=== PATIENT | female | born 1985 | race Caucasian/White ===

== ENCOUNTER 2017-01-04 16:56 | Emergency (ER) | payer OTHER ==
[~2017-01-04] VITALS: Ht 165.1 cm; Wt 113.4 kg
[~2017-01-04 16:56] MED LIST: AMOXICILLIN875 M1 PO; AUGMENTIN 875 M1 TAB PO; BACTRIM DS TAB1 EACH PO; CIPRO 500MG TA500 MG PO; KEFLEX500 MG PO; LOMOTIL 0.025 M1 TAB PO; MOTRIN 600 MG600 MG PO; NEXPLANON68 MG; PERCOCET 325 MG1 TA2 PO; PREDNICOT20 MG PO; PREDNISONE20 M1 PO; PREDNISONE50 MG PO; PREMARIN 1.251.25 MG PO; PYRIDIUM100 M1 PO; PYRIDIUM200 MG PO; ROBITUSSIN W/CO10 ML PO; TESSALON PERLE100 MG PO; TRAMADOL50 MG PO; ZITHROMAX250 M2 PO; ZOFRAN ODT4 M1 PO; ZOFRAN ODT4 M1 SL; ZOFRAN ODT4 MG PO
--- NOTE | 2017-01-04 18:46 | ED GENERAL ADULT ---
History of Present Illness General Chief Complaint: General Adult Stated Complaint: PT HAVING ,PAIN NOSE AREA, HEADACHE, Source: patient Exam Limitations: no limitations Vital Signs & Intake/Output Vital Signs & Intake/Output Vital Signs Date Time Temp Pulse Resp B/P B/P Pulse O2 O2 Flow FiO2 Mean Ox Delivery Rate 01/04 1713 97.8 88 20 127/89 98 Room Air Allergies Coded Allergies: No Known Allergies (01/04/17) Reconcile Medications Amoxicillin 875 MG TABLET 1 TAB PO BID sinusitis Amoxicillin 875 MG TABLET 1 TAB PO BID sinusitis Etonogestrel (Nexplanon) 68 MG IMP CONTROL (Reported) Fluticasone Propionate (Flonase Allergy Relief) 50 MCG/ACTUATION SPRAY.SUSP 2 SPRAY INH DAILY SINUSITIS Ondansetron (Zofran Odt) 4 MG TAB.RAPDIS 1 TAB SL TID PRN nausea Prednisone 20 MG TABLET 1 TAB PO BID sinusitis Triage Note: TRIAGE: PT TO ER WITH FRIEND C/C HEADACHE PAIN AND FACIAL PRESSURE SINCE THURSDAY AND "MY THROAT IS ICKY". PAINS ARE CONSTANT AND WORSENING SINCE ONSET. +POST NASAL DRIP. TRIED ALLERGY MEDICINE WITH NO RELIEF NOTED. Triage Nurses Notes Reviewed? yes : No Patient currently breastfeeds: No HPI: Patient is a 31-year-old female presents complaining of sinus pain, swollen lymph nodes and postnasal drip. Symptoms onset on Thursday. Symptoms have been progressively worsening. Cough with yellow sputum production. Patient has been taking allergy medication with no improvement. Symptoms are currently moderate. Mild associated sore throat. Patient denies fevers, difficulty swallowing, difficulty breathing. Past History Travel History Traveled to [place] past 21 day No Medical History Any Pertinent Medical History? 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 No Review of Systems Review of Systems Constitutional: Denies: chills, fever. EENTM: Reports: see HPI. Respiratory: Reports: cough, sputum production. Denies: short of breath, wheezing. Cardiovascular: Denies: chest pain. GI: Denies: abdominal pain. Musculoskeletal: Reports: no symptoms. Skin: Reports: no symptoms. Neurological/Psychological: Reports: headache. Hematologic/Endocrine: Reports: no symptoms. Immunologic/Allergic: Reports: no symptoms. Physical Exam Physical Exam General Appearance: well developed/nourished, alert, awake Head: atraumatic, normal appearance, bilateral maxillary and frontal sinus tenderness Eyes: Bilateral: normal appearance, PERRL, EOMI. Ears, Nose, Throat: normal ENT inspection, hearing grossly normal, mild pharyngeal erythema. No tonsillar exudates. Neck: normal inspection, supple, full range of motion, mild bilateral Respiratory: normal breath sounds, chest non-tender, no respiratory distress, lungs clear Cardiovascular: regular rate/rhythm Back: normal inspection, normal range of motion Extremities: normal capillary refill, normal range of motion Neurologic/Psych: awake, alert, oriented x 3, normal gait, normal mood/affect Skin: intact, normal color, warm/dry Lymphatic: adenopathy (bilateral anterior cervical) Core Measures ACS in differential dx? No CVA/TIA Diagnosis: No Severe Sepsis Present: No Septic Shock Present: No Progress Differential Diagnoses I considered the following diagnoses in my evaluation of the patient: sinusitis, pharyngitis, strep throat, viral uri, pneumonia, bronchitis Plan of Care: Patient nontoxic appearing, tolerating oral intake, no respiratory distress. Appears stable for discharge. Initial ED EKG: none Departure Departure Time of Disposition: 1852 Disposition: HOME OR SELF CARE Condition: Stable Clinical Impression Primary Impression: Sinusitis Qualifiers: Sinusitis location: unspecified location Chronicity: acute Recurrence: non-recurrent Qualified Code: J01.90 - Acute sinusitis, unspecified Referrals: PATIENT HAS NO PRIMARY CARE DR (PCP/Family) Additional Instructions: Drink plenty of fluids and rest. Return to emergency department if difficulty breathing, unable to stay hydrated, or worsening of symptoms. Departure Forms: Customer Survey General Discharge Information Prescriptions: Current Visit Scripts Amoxicillin 1 TAB PO BID #14 TAB Fluticasone Propionate (Flonase Allergy Relief) 2 SPRAY INH DAILY #1 BOT Critical Care Note Critical Care Note Critical Care Time: non-applicable
[2017-01-04] MEDS ORDERED: AMOXICILLIN875 M1 PO (18:54)
[2017-01-04] MEDS ORDERED: FLONASE ALLERG9.9 ML INH (18:55)
[2017-01-04 19:04] VITALS: BP 128/82
== END 2017-01-04 19:04 ==
LOC: ERH 16:56
DX: J32.9 Chronic sinusitis, unspecified (principal)

== ENCOUNTER 2017-02-01 02:44 | Emergency (ER) | payer OTHER ==
[~2017-02-01] VITALS: Ht 165.1 cm; Wt 113.4 kg
[~2017-02-01 02:44] MED LIST changes: +FLONASE ALLERG9.9 ML INH
--- NOTE | 2017-02-01 03:16 | ED GI/GU/ABDOMINAL COMPLAINT ---
History of Present Illness General Chief Complaint: General Adult Stated Complaint: "PER PT N+V+D, DIZZZY, HILL" Source: patient Exam Limitations: no limitations Vital Signs & Intake/Output Vital Signs & Intake/Output Vital Signs Date Time Temp Pulse Resp B/P B/P Pulse O2 O2 Flow FiO2 Mean Ox Delivery Rate 02/01 0311 97.2 89 20 117/83 98 Allergies Coded Allergies: No Known Allergies (01/04/17) Reconcile Medications Amoxicillin 875 MG TABLET 1 TAB PO BID sinusitis Amoxicillin 875 MG TABLET 1 TAB PO BID sinusitis Etonogestrel (Nexplanon) 68 MG IMP CONTROL (Reported) Fluticasone Propionate (Flonase Allergy Relief) 50 MCG/ACTUATION SPRAY.SUSP 2 SPRAY INH DAILY SINUSITIS Ondansetron (Zofran Odt) 4 MG TAB.RAPDIS 1 TAB SL Q6P PRN NAUSEA/VOMITING Ondansetron (Zofran Odt) 4 MG TAB.RAPDIS 1 TAB SL TID PRN nausea Prednisone 20 MG TABLET 1 TAB PO BID sinusitis Triage Note: PER PT WOKE UP APPROX 1 HR AGO, NAUSEA AND VOMITING AND DIARHHEA GOT REALLY WARM AND SWEATY, NOW FEEL "FUZZY" NO FURTHER VOMITING. BUT DOES NOT FEEL WELL Triage Nurses Notes Reviewed? yes ? n Is pt currently ? No HPI: Patient presents for evaluation of a sudden onset of vomiting and diarrhea that began about 1 hour ago while at home. Patient states she's had about 5 episodes of vomiting and at least 2 episodes of diarrhea with associated dizziness and headache. She denies any associated fever, cold symptoms, recent travel, known ill contacts or suspicious meals. She states she is having a little diffuse cramping abdominal pain. Past History Travel History Traveled to [place] past 21 day No Medical History Any Pertinent Medical History? 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 No Review of Systems Review of Systems Constitutional: Reports: no symptoms. EENTM: Reports: no symptoms. Respiratory: Reports: no symptoms. Cardiovascular: Reports: no symptoms. GI: Reports: see HPI. Genitourinary: Reports: no symptoms. Musculoskeletal: Reports: no symptoms. Skin: Reports: no symptoms. Neurological/Psychological: Reports: headache. Hematologic/Endocrine: Reports: no symptoms. Immunologic/Allergic: Reports: no symptoms. All Other Systems: Reviewed and Negative Physical Exam Physical Exam Gastrointestinal: SEE BELOW Comments: Gen.: Well-nourished, well-developed, no acute respiratory distress. Overweight. Head: Normocephalic, atraumatic. Eyes: Normal inspection bilaterally Ears: Normal inspection bilaterally Nose: Normal inspection Throat/mouth : Moist mucosa Neck: Supple, full range of motion, no goiter Heart: Regular rate and rhythm, no murmurs rubs or gallops Lungs: Clear to auscultation bilaterally with normal air entry Chest: Nontender Back: Normal range of motion Abdomen: Soft, tenderness over the left upper quadrant epigastric region right upper quadrant and right lower quadrant., nondistended, normal bowel sounds Extremities: Normal range of motion grossly, equal radial pulses, no cyanosis clubbing or edema Neurologic: Cranial nerves grossly intact, speech is clear Skin: warm and dry Psychiatric: Calm, cooperative, no apparent delusions or hallucinations Core Measures ACS in differential dx? No Severe Sepsis Present: No Septic Shock Present: No Progress Differential Diagnosis: ibd, ibs, FOOD POISONING, VIRAL GASTROENTERITIS Plan of Care: Current Medications Sig/Sterling Start time Last Medication Dose Stop Time Status Admin Ondansetron HCl 4 MG ONCE ONE 02/015 UNVr (Zofran) 02/01 0316 Sodium Chloride 1,000 ML BOLUS ONE 02/015 UNVr (Normal Saline 0.9%) 02/01 0414 Initial ED EKG: none Comments: 02/01/2017 4:57:20 AM Nisreen slept during her emergency department stay. She feels much better at this point. I feel she is stable for outpatient management. Given the vomiting Diarrhea, minimal abdominal pain and response to fluids and Zofran I suspect a gastroenteritis. Departure Departure Disposition: HOME OR SELF CARE Condition: Stable Clinical Impression Primary Impression: Gastroenteritis Referrals: PATIENT HAS NO PRIMARY CARE DR (PCP/Family) Additional Instructions: Zofran as needed for nausea or vomiting. Clear liquid diet and advance as tolerated. Follow-up with your primary care doctor on Thursday for reevaluation. Return if any concerns or sudden worsening. Thank you for choosing the [facility] Emergency Department for your care. It was a pleasure to serve you today. Elver Marshall M.D. [facility] Departure Forms: Customer Survey General Discharge Information Prescriptions: Current Visit Scripts Ondansetron (Zofran Odt) 1 TAB SL Q6P PRN NAUSEA/VOMITING #10 TAB
[2017-02-01] MEDS ORDERED: ZOFRAN ODT4 M1 SL (05:10)
[2017-02-01 05:15] VITALS: BP 126/75
== END 2017-02-01 05:17 ==
LOC: ERH 02:44
DX: K52.9 Noninfective gastroenteritis and colitis, unspecified (principal)
CPT/HCPCS: 96374; J2405

== ENCOUNTER 2017-09-14 10:01 | Emergency (ER) | payer OTHER ==
[~2017-09-14] VITALS: Ht 165.1 cm; Wt 113.4 kg
[~2017-09-14 10:01] MED LIST changes: +LEVSIN0.125 M1 PO
--- NOTE | 2017-09-14 10:23 | ED GI/GU/ABDOMINAL COMPLAINT ---
History of Present Illness General Chief Complaint: General Adult Stated Complaint: ABD PAIN N/V/D Source: patient Exam Limitations: no limitations Vital Signs & Intake/Output Vital Signs & Intake/Output Vital Signs Date Time Temp Pulse Resp B/P B/P Pulse O2 O2 Flow FiO2 Mean Ox Delivery Rate 09/14 1300 98.1 70 20 108/61 98 Room Air 09/14 1143 74 20 102/61 98 Room Air 09/14 1120 70 20 96/51 97 Room Air 09/14 1004 98.4 108 18 144/98 98 Room Air Allergies Coded Allergies: No Known Allergies (01/04/17) Reconcile Medications Hyoscyamine (Levsin) 0.125 MG TABLET 1 TAB PO Q4 PRN ABDOMINAL SPASMS Hyoscyamine (Levsin) 0.125 MG TABLET 1 TAB PO Q4 PRN ABDOMINAL SPASMS Ondansetron (Zofran Odt) 4 MG TAB.RAPDIS 1 TAB SL TID PRN NAUSEA Ondansetron (Zofran Odt) 4 MG TAB.RAPDIS 1 TAB SL TID PRN NAUSEA Triage Note: 32 YO FEMALE TO ER C/O LOWER ABD ABD AND NVD X3 DAYS. STATES IT HAS BEEN GETTING PROGRESSIVELY WORSE. DENEIS URINARY S/S. Triage Nurses Notes Reviewed? yes ? n Is pt currently ? No Onset: Gradual Duration: day(s): (3) Timing: remote history Quality/Severity: cramping Severity Numbers: 6 Location: generalized abdomen Radiation: no radiation Activities at Onset: none Prior Abdominal Problems: similar symptoms Past Sexual History: Unobtainable at this time No Modifying Factors: none HPI: Patient is a 32-year-old female with no medical history presenting to the emergency department chief complaining of nausea vomiting diarrhea that the glans the past 3 days. She reports that she's had 4-5 episodes of loose watery stools for the past 3 days which got worse this morning. Denies any blood in the stool. Just reports that this morning she had 2 episodes of nonbloody nonbilious emesis. "I spit up fluids". She has been taking Pepto-Bismol which seemed to help initially but then hasn't been helping. She has not taken a dose today. Denies fevers or chills. No sick contacts or recent travel. No recent antibiotic use. Abdominal pain is crampy in nature. Pain is nonradiating. (Una De Oliveira) Past History Travel History Traveled to [place] past 21 day No Medical History Any Pertinent Medical History? 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 No (Una De Oliveira) Review of Systems Review of Systems Constitutional: Reports: malaise. Comments Review of systems: See HPI, All other systems negative. Constitutional, no chills fever or weight loss HEENT: No visual changes no sore throat no congestion Cardiovascular: No chest pain ,palpitation Skin, no jaundice no rashes Respiratory: No dyspnea cough sputum or hemoptysis GI: Positive nausea, vomiting and diarrhea : No dysuria No hematuria Muscle skeletal: no back pain, no neck pain, Neurologic: No numbness no confusion, no headaches Psych: No stress anxiety or depression,. Heme/endocrine: No bruising no bleeding no polyuria or polydipsia Immunology: No splenectomy or history of AIDS (Una De Oliveira) Physical Exam Physical Exam General Appearance: well developed/nourished, no apparent distress, alert, awake , comfortable Gastrointestinal: normal bowel sounds, soft, tenderness Comments: Well-developed well-nourished person in no acute distress HEENT: Atraumatic, normocephalic, moist oral mucosa. Neck: Normal inspection Back: Nontender, no CVA tenderness. Cardiovascular: Regular rate and rhythms no murmurs rubs or gallops, normal JVP Respiratory: Chest nontender. No respiratory distress.breath sounds clear to auscultation bilaterally Abdomen: Soft, obese, diffusely tender to palpation, no rebound or guarding, nondistended, no appreciable organomegaly. Normal bowel sounds. No ascites Neuro: Alert oriented x3 Skin: No appreciable rash on exposed skin, skin is warm and dry. Psych: Mood and affect is normal, memory and judgment is normal. Core Measures ACS in differential dx? No Sepsis Present: No Sepsis Focused Exam Completed? No (Gal JOYNER,Una) Progress Differential Diagnosis: gastritis, dehydration, electrolyte abnormality, viral syndrome, pancreatitis, peptic ulcer disease, biliary dysfunction Plan of Care: Orders Procedure Date/time Status Add-on Test (ER Only) 09/14 1253 Active CULTURE,URINE 09/14 1218 Active LIPASE 09/14 1023 Complete COMPREHENSIVE METABOLIC PANEL 09/14 1023 Complete CBC WITHOUT DIFFERENTIAL 09/14 1023 Complete AMYLASE 09/14 1023 Complete URINE 09/14 1018 Complete URINALYSIS 09/14 1018 Complete Laboratory Tests 09/14/17 1218: Urinalysis LIGHT H, Urine Color YEL, Urine Clarity HAZY H, Urine pH 7.0, Ur Specific Creighton 1.020, Urine Protein 30 H, Urine Ketones NEG, Urine Nitrite NEG, Urine Bilirubin NEG, Urine Urobilinogen 0.2, Ur Leukocyte Esterase MOD H, Ur Microscopic SEDIMENT EXAMINED, Urine WBC 15-25 H, Ur Epithelial Cells MANY H, Urine Bacteria MANY H, Urine Hemoglobin NEG, Urine Glucose NEG, Urine Test NEGATIVE 09/14/17 1128: Anion Gap 10, Estimated GFR > 60, BUN/Creatinine Ratio 14.3, Glucose 98, Calcium 8.9, Total Bilirubin 0.7, AST 17, ALT 18, Alkaline Phosphatase 115, Total Protein 6.6, Albumin 3.5, Globulin 3.1, Albumin/Globulin Ratio 1.1, Amylase 54, Lipase 123 09/14/17 1040: CBC w Diff NO MAN DIFF REQ, RBC 5.31, MCV 84.1, MCH 27.7, RDW 12.8, MPV 8.0, Gran % 69.9, Lymphocytes % 22.3, Monocytes % 6.3, Eosinophils % 1.1, Basophils % 0.4, Absolute Granulocytes 5.3, Absolute Lymphocytes 1.7, Absolute Monocytes 0.5 , Absolute Eosinophils 0.1, Absolute Basophils 0, PUBS MCHC 33.0 Microbiology 09/14 1218 URINE ROUT: Urine Culture - RECD 09/14/2017 10:27:40 AM on arrival patient is afebrile, no acute distress, disease abdominal pain on exam, no focal tenderness. No guarding. Patient is well- appearing with moist oral mucosa. Nausea vomiting diarrhea 3 days, likely viral process, we will assess CbC, CMP, lipase and amylase to review for electrolyte abnormality. Patient will be medicated with IV Toradol, IV Zofran and IV hydration. 09/14/2017 11:33:36 AM patient had vasovagal episode after IV blood draw. Patient was arousable with sternal rub after several seconds. Feeling slightly lightheaded. Placed in Trendelenburg position. Ice pack applied to the posterior aspect of the neck. 09/14/2017 12:54:07 PM urinalysis is not a clean catch. We will send off culture. Patient asymptomatic at this time. If culture grows anything will call the patient started on antibiotics. Patient nontoxic. Blood pressure stabilized after vasovagal episode. Tolerating by mouth without nausea or vomiting. Initial ED EKG: none (Una De Oliveira) Departure Departure Time of Disposition: 1254 Disposition: HOME OR SELF CARE Condition: Stable Clinical Impression Primary Impression: Gastroenteritis Secondary Impressions: Vasovagal episode Referrals: Patient Has No Primary Care Dr (PCP/Family) Additional Instructions: Follow-up with your primary care physician in the next 5-7 days. Increase fluids. Take Zofran as prescribed up with nausea. Take Levsin help with abdominal discomfort. Viruses can linger for 7-10 days. Make sure you return for any worsening symptoms or concerns. Departure Forms: Customer Survey D/C INS-APPENDICITIS EXCLUSION General Discharge Information Prescriptions: Current Visit Scripts Ondansetron (Zofran Odt) 1 TAB SL TID PRN NAUSEA #10 TAB Hyoscyamine (Levsin) 1 TAB PO Q4 PRN ABDOMINAL SPASMS #40 TAB (Una De Oliveira) PA/BISQUE GRADER Co-Sign Statement Statement: ED Attending supervision documentation- [] I saw and evaluated the patient. I have also reviewed all the pertinent lab results and diagnostic results. I agree with the findings and the plan of care as documented in the PA's/BISQUE GRADER's documentation. [X] I have reviewed the ED Record and agree with the PA's/BISQUE GRADER's documentation. [] Additions or exceptions (if any) to the PAs/BISQUE GRADER's note and plan are summarized below: [] (Margarita NORIEGA,Sebastian Bergman)
[2017-09-14 10:56] LABS: ABSOLUTE BASOPHIL COUNT 0 /CUMM (0.0-0.2); ABSOLUTE EOSINOPHIL COUNT 0.1 /CUMM (0.0-0.7); ABSOLUTE GRANULOCYTE CT 5.3 /CUMM (1.4-6.5); ABSOLUTE LYMPH COUNT 1.7 /CUMM (1.2-3.4); ABSOLUTE MONOCYTE COUNT 0.5 /CUMM (0.10-0.60); BASOPHIL % 0.4 % (0.0-2.0); EOSINOPHIL % 1.1 % (0-5); GRANULOCYTE % 69.9 % (42.2-75.2); HEMATOCRIT 44.7 % (37-47); MEAN CORPUSCULAR HGB 27.7 PG (27.0-31.0); MEAN CORPUSCULAR VOLUME 84.1 FL (81.0-99.0); PLATELET COUNT 397 /CUMM (130-400); RBC DISTRIBUTION WIDTH 12.8 % (11.5-14.5); RED BLOOD CELL CT 5.31 /CUMM (4.20-5.40); WHITE BLOOD CELL COUNT 7.6 /CUMM (4.8-10.8)
[2017-09-14] MEDS ORDERED: ZOFRAN ODT4 M1 SL (12:35)
[2017-09-14] MEDS ORDERED: LEVSIN0.125 M1 PO (12:35)
[2017-09-14 13:00] VITALS: BP 108/61
== END 2017-09-14 13:00 ==
LOC: ERH 10:01
PROVIDERS: Physician Assistant
DX: K52.9 Noninfective gastroenteritis and colitis, unspecified (principal); R55 Syncope and collapse
CPT/HCPCS: 81001; 81025; 87086; 96361; 96374; 96375; J1885; J2405